=== PATIENT | male | born 1950 | race Caucasian/White ===

== ENCOUNTER → 2022-07-27 | Outpatient (CLI) | payer BC, MEDICARE, OTHER, SELFPAY ==
[~2022-07-27] MED LIST: ATOR40TA75 PO; CLON1TAB8 PO; DULO1CAP4 PO; IRON325T9 PO; NICOINH INH; RAMI1CAP21 PO; TREL1AER INH; XARE20TA PO
== END ==
LOC: M ONCR 10:05
PROVIDERS: ATTEND General Practice
DX: C61 Malignant neoplasm of prostate (principal); E66.9 Obesity, unspecified; E78.5 Hyperlipidemia, unspecified; F17.210 Nicotine dependence, cigarettes, uncomplicated; F43.10 Post-traumatic stress disorder, unspecified; N40.1 Benign prostatic hyperplasia with lower urinary tract symptoms; G47.33 Obstructive sleep apnea (adult) (pediatric); I11.9 Hypertensive heart disease without heart failure; I25.9 Chronic ischemic heart disease, unspecified; I48.0 Paroxysmal atrial fibrillation; I50.9 Heart failure, unspecified; J44.9 Chronic obstructive pulmonary disease, unspecified; Z79.01 Long term (current) use of anticoagulants

== ENCOUNTER → 2022-08-11 | Outpatient (CLI) | payer MEDICARE, OTHER ==
[~2022-08-11] VITALS: Ht 182.9 cm; Wt 77.3 kg
[~2022-08-11] MED LIST changes: +CIPR750T2 PO; +LIDOCAINE 2% MDV 20ML VIAL XX ONE; +LIDOCAINE VISCOUS 2% SOLN 15ML UDC XX ONE
[2022-08-11 10:24] VITALS: BP 140/80
[2022-08-11 11:02] VITALS: BP 138/84
== END ==
LOC: M ONCR 09:58
PROVIDERS: ATTEND General Practice
DX: C61 Malignant neoplasm of prostate (principal)
CPT/HCPCS: 55874; 55876; A4648; C1889